=== PATIENT | male | born 1990 | race Caucasian/White ===

== ENCOUNTER 2016-07-20 11:50 | Emergency (ER) | payer OTHER ==
[~2016-07-20] VITALS: Ht 175.3 cm; Wt 82.7 kg
[2016-07-20 11:57] VITALS: BP 157/96
[2016-07-20] MEDS ORDERED: OXYcodone/APAP 10/325MG TABLET ONE (12:23)
[2016-07-20] MEDS ORDERED: OXYcodone/APAP 10/325MG TABLET PO ONE (12:30)
[2016-07-20] MEDS ORDERED: HYDROmorphone 1 MG/ML, 1ML ONE (13:20)
[2016-07-20] MEDS ORDERED: HYDROmorphone 1 MG/ML, 1ML IM ONE (13:30)
[2016-07-20] MEDS ORDERED: ONDANSETRON ODT 4 MG ONE (13:32)
== END 2016-07-20 14:14 | disposition home or self-care (01) ==
LOC: ED 14:08
DX: S62.334A Displaced fracture of neck of fourth metacarpal bone, right hand, initial encounter for closed fracture (principal); S62.336A Displaced fracture of neck of fifth metacarpal bone, right hand, initial encounter for closed fracture; S60.412A Abrasion of right middle finger, initial encounter; S60.414A Abrasion of right ring finger, initial encounter; W22.8XXA Striking against or struck by other objects, initial encounter; Y93.89 Activity, other specified; Y92.009 Unspecified place in unspecified non-institutional (private) residence as the place of occurrence of the external cause; Y99.9 Unspecified external cause status
CPT/HCPCS: 26605; 73110; 73130; 96372; 99284; J1170